=== PATIENT | female | born 1970 | race Caucasian/White ===

== ENCOUNTER 2017-01-26 14:12 | Emergency (ER) | payer SELFPAY ==
[~2017-01-26] VITALS: Ht 170.2 cm; Wt 54.4 kg
[2017-01-26 14:35] VITALS: BP 174/110
--- NOTE | 2017-01-26 15:03 | RAD ---
Right RIBS with chest, 3 views, 01/26/2017: History: Chest pain No fracture or other rib abnormality is detected. There is no evidence of underlying pneumothorax, hemothorax or pulmonary infiltrate. The heart size is normal. Several old healed lower left rib fractures are noted. IMPRESSION: No significant right rib abnormality is detected.
--- NOTE | 2017-01-26 15:21 | PHYS DOC ---
Past Medical History Past Medical History: No Pertinent History Past Surgical History: No Surgical History Alcohol Use: None Drug Use: None Adult General Chief Complaint Chief Complaint: RIB PAIN [facility] HPI Patient is a 46 year old patient presents to the emergency with c/o right rib pain. Patient states she had been working in her garden last week and noted the pain after she had finished. She states she has increase pain with cough and deep breathing. Patient states she has taken ibuprofen 800 mg twice yesterday without relief. Review of Systems Review of Systems Constitutional: Denies fever or chills [] Eyes: Denies change in visual acuity, redness, or eye pain [] HENT: Denies nasal congestion or sore throat [] Respiratory: Denies cough or shortness of breath [] Cardiovascular: No additional information not addressed in HPI [] GI: Denies abdominal pain, nausea, vomiting, bloody stools or diarrhea [] : Denies dysuria or hematuria [] Musculoskeletal: Denies back pain or joint pain [] Integument: Denies rash or skin lesions [] Neurologic: Denies headache, focal weakness or sensory changes [] Endocrine: Denies polyuria or polydipsia [] Allergies Allergies Allergies Coded Allergies Type Severity Reaction Last Updated Verified No Known Drug Allergies 01/26/17 No Physical Exam Physical Exam Constitutional: Well developed, well nourished, no acute distress, non-toxic appearance. [] HENT: Normocephalic, atraumatic, bilateral external ears normal, oropharynx moist, no oral exudates, nose normal. [] Eyes: PERRLA, EOMI, conjunctiva normal, no discharge. [] Neck: Normal range of motion, no tenderness, supple, no stridor. [] Cardiovascular:Heart rate regular rhythm, no murmur [] Lungs & Thorax: Bilateral breath sounds clear to auscultation. Patient with tenderness noted to the right ribs no redness, no bruising noted. Skin: Warm, dry, no erythema, no rash. [] Back: No tenderness Extremities: No tenderness, no cyanosis, no clubbing, ROM intact, no edema. [] Neurologic: Alert and oriented X 3, normal motor function, normal sensory function, no focal deficits noted. [] Psychologic: Affect normal, judgement normal, mood normal. [] Current Patient Data Vital Signs Vital Signs Date Time Temp Pulse Resp B/P (MAP) Pulse Ox O2 Delivery O2 Flow Rate FiO2 01/26/17 14:35 98.1 85 16 96 Room Air 98.1 EKG EKG [] Radiology/Procedures Radiology/Procedures [][facility] [address] [place] [address] IMAGING REPORT Signed PATIENT: CHRISTIE BARLOW ACCOUNT: [id number] : 1970 LOCATION: ER AGE: 46 SEX: F EXAM STATUS: REG ER ORD. PHYSICIAN: ANICETO VÁZQUEZ APRN REASON: rib pain, patient thinks she misplaced them PROCEDURE: RIBS RIGHT AND PA CHEST Right RIBS with chest, 3 views, 01/26/2017: History: Chest pain No fracture or other rib abnormality is detected. There is no evidence of underlying pneumothorax, hemothorax or pulmonary infiltrate. The heart size is normal. Several old healed lower left rib fractures are noted. IMPRESSION: No significant right rib abnormality is detected. DICTATED and SIGNED BY: AROLDO MONTES MD DATE: 01/26/17 1459 CC: ANICETO VÁZQUEZ APRN; NO PCP; NON,STAFF ~ Course & Med Decision Making Course & Med Decision Making Pertinent Labs and Imaging studies reviewed. (See chart for details) Chest x-ray was negative for any bony abnormalities. Patient will be discharged home with recommendations for ibuprofen 800 mg every 8 hours. We'll encourage incentive spirometer with 6 breaths every hour. Patient will be encouraged to stop smoking. Signs symptoms to return back to emergency department been provided. [] Dragon Disclaimer Dragon Disclaimer This electronic medical record was generated, in whole or in part, using a voice recognition dictation system. Departure Departure Impression: Primary Impression: Rib pain on right side Disposition: HOME, SELF-CARE Condition: STABLE Referrals: NO PCP (PCP) Patient Instructions: Rib Contusion Additional Instructions: Activity as tolerated Ibuprofen 800 mg every 8 hours with food stop taking few develop an upset stomach. Warm moist packs to the chest wall may also help. Stop smoking. Use incentive spirometer taking 6 breath every hour. Follow-up through primary care physician next 5-7 days. Return back to emergency prior signs symptoms become worse ANICETO VÁZQUEZ APRN January 26, 2017 15:21
== END 2017-01-26 15:47 | disposition home or self-care (01) ==
LOC: ER 14:12
DX: R07.81 Pleurodynia (principal)
CPT/HCPCS: 71101; 99284